=== PATIENT | female | born 1975 | race Caucasian/White ===

== ENCOUNTER 2017-10-28 13:44 | Emergency (ER) | payer OTHER, SELFPAY ==
[2017-10-28 13:44] VITALS: BP 137/89; PULSE 113; RESP 14; TEMP 36.7; O2SAT 100; BMI 19.5
--- NOTE | 2017-10-28 13:53 | RAD_ITS ---
STUDY: X-RAY - RIGHT FOOT CLINICAL: Female, 42 years old. PAIN S/P DROPPING HEAVY OBJECT ON TOP OF FOOT. TECHNIQUE: 3 view(s) of the foot. COMPARISON: None. FINDINGS: Normal talus, calcaneus, and tarsal bones. Normal visualized subtalar, talonavicular, calcaneocuboid, tarsal and tarsometatarsal articulations. Normal metatarsi. Normal metatarsophalangeal joint of the great toe. Normal tibial and fibular sesamoid bones. Normal interphalangeal joint of the great toe. Normal phalanges of the great toe. Normal second through fifth metatarsophalangeal joints. Normal interphalangeal joints and phalanges of the lesser toes. The soft tissue structures are unremarkable. RAD/Foot min 3 Views IMPRESSION: Normal x-ray examination of the foot. Electronically Signed: Tal Garza MD at 14:29 EST Tel , Service support ,
[2017-10-28] MEDS: Naproxen 500 MG Tablet PO (14:04)
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
--- NOTE | 2017-10-28 15:06 | ED.DEP ---
ED Disposition - Plan for ED Patient: Chief Complaint: Lower Extremity Injury Instructions: ED Contusion Foot Referrals: Sukhi Arrington MD [Primary Care Provider] - 5-7 Days
--- NOTE | 2017-10-28 15:39 | ED.RN ---
1520-VERBAL AND WRITTEN D/C INSTRUCTIONS GIVEN. ALL QUESTIONS ANSWERED. SKIN W/D. ABCS INTACT. GAIT STEADY OUT OF DEPARTMENT.
== END 2017-10-28 15:20 | disposition home or self-care (01) ==
LOC: ED 14:14
PROVIDERS: Emergency Provider Emergency Medicine; Family Provider Family Medicine; PCP Family Medicine
DX: S90.31XA Contusion of right foot, initial encounter (principal); W20.8XXA Other cause of strike by thrown, projected or falling object, initial encounter; Y93.9 Activity, unspecified; Y92.89 Other specified places as the place of occurrence of the external cause; Y99.9 Unspecified external cause status
CPT/HCPCS: 73630; 99283

== ENCOUNTER 2018-01-14 17:50 | Emergency (ER) | payer OTHER, SELFPAY ==
[2018-01-14 17:51] VITALS: BP 148/65; PULSE 81; RESP 14; TEMP 36.5; O2SAT 100; BMI 20.3
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
[2018-01-14] MEDS: traMADol 50 MG Tablet PO (18:35)
== END 2018-01-14 18:39 | disposition home or self-care (01) ==
PROVIDERS: Emergency Provider Emergency Medicine; Family Provider Family Medicine; PCP Family Medicine
DX: S46.011D Strain of muscle(s) and tendon(s) of the rotator cuff of right shoulder, subsequent encounter (principal); V89.2XXD Person injured in unspecified motor-vehicle accident, traffic, subsequent encounter
CPT/HCPCS: 99283

== ENCOUNTER 2018-08-25 22:02 | Emergency (ER) | payer OTHER, SELFPAY ==
[2018-08-25 22:03] VITALS: BP 125/71; PULSE 87; RESP 12; TEMP 36.2; O2SAT 99; BMI 21.1
--- NOTE | 2018-08-25 22:15 | RAD_ITS ---
STUDY: X-RAY - LEFT ANKLE REASON FOR EXAM: Female, 43 years old. Left ankle pain. TECHNIQUE: 3 view(s) of the ankle. COMPARISON: None. FINDINGS: Normal visualized distal tibia and fibula. Normal medial and lateral malleoli. Normal tibiotalar articulation and ankle mortise. Normal visualized talus and calcaneus. The visualized subtalar, talonavicular, calcaneocuboid and tarsal articulations are normal. The soft tissue structures are unremarkable. RAD/Ankle min 3 Views IMPRESSION: No acute osseous injury. Electronically Signed: Kate Back MD at 22:52 EST Tel , Service support ,
--- NOTE | 2018-08-25 22:42 | ED.VISSUMM ---
- ER Visit Summary Date of Service: 08/25/18 Chief Complaint: Left ankle injury History of Present Illness: The patient is a 43 F who missed the bottom step and rolled her left ankle prior to arrival. She is pain to the left ankle. Denies paresthesias. Denies any other injury from her fall. Physical Examination: Vital signs unremarkable. Patient is lying in bed no acute distress. Left lower extremity examination reveals tenderness of the lateral malleolus with mild edema. No tenderness over the foot itself, specifically to the proximal fifth metatarsal. No tenderness over the proximal fibula. She has strong pulses and normal sensation. No overlying skin changes. Test Results: Left ankle x-rays reveal no acute osseous injury. Emergency Department Course and Treatment: Test results are discussed with the patient. She will be treated with a course of Naprosyn, first dose given here. She is given an air splint. She declines the need for crutches. Treatment Plan: [] Disposition: Discharge Impression: Left ankle sprain This note was generated with [employer] dictation software. It may contain incorrect words, spelling, and punctuation that were not noted in review of the chart prior to signing ED Disposition - Plan for ED Patient: Disposition: Home or Assisted Living Chief Complaint: Lower Extremity Injury Instructions: ED Sprain Ankle W X Ray Prescriptions: Naproxen [Naprosyn] 500 mg PO BID PRN PRN #20 tablet PRN Reason: Pain Referrals: Sukhi Arrington MD [Primary Care Provider] - 1 Week if not improving
[2018-08-25] MEDS: Naproxen 500 MG Tablet PO (22:58)
== END 2018-08-25 22:59 | disposition home or self-care (01) ==
LOC: ED 22:46
PROVIDERS: Emergency Provider Emergency Medicine; Family Provider Family Medicine; PCP Family Medicine
DX: S93.402A Sprain of unspecified ligament of left ankle, initial encounter (principal); X50.1XXA Overexertion from prolonged static or awkward postures, initial encounter; Y93.9 Activity, unspecified; Y92.89 Other specified places as the place of occurrence of the external cause; Y99.8 Other external cause status
CPT/HCPCS: 73610; 99283